=== PATIENT | female | born 1985 | race Caucasian/White ===

== ENCOUNTER → 2017-12-08 | Outpatient (CLI) | payer OTHER ==
[2017-12-08 10:19] LABS: Basophils % (A) 1 %; Eosinophils # (A) 0.1 k/uL (0-0.7); Eosinophils % (A) 2 %; HCT 41.4 % (34.0-46.0); HGB 13.5 gm/dL (11.4-16.0); Lymphocytes # (A) 1.7 k/uL (1.0-4.8); Lymphocytes % (A) 41 %; MCH 27.4 pg (25.0-35.0); MCHC 32.6 g/dL (31.0-37.0); MCV 84.1 fL (80.0-100.0); Mean Platelet Volume 6.9; Monocytes # (A) 0.2 k/uL (0-1.0); Monocytes % (A) 5 %; Neutrophils # (A) 2.1 k/uL (1.3-7.7); Neutrophils % (A) 49 %; Platelet Count 238 k/uL (150-450); RBC 4.92 m/uL (3.80-5.40); RDW 15.4 % (11.5-15.5); WBC 4.3 k/uL (3.8-10.6)
== END | disposition home or self-care (01) ==
LOC: LABPAT 09:50
PROVIDERS: ATTEND Obstetrics & Gynecology
DX: Z01.812 Encounter for preprocedural laboratory examination (principal)
CPT/HCPCS: 36415; 85025

== ENCOUNTER 2017-12-15 06:08 | Day surgery (SDC) | payer OTHER ==
[~2017-12-15 06:08] MED LIST: DEXAMETHASONE SOD PHOSPHATE 10 MG/ML 1 ML VIAL IV ONE; LACTATED RINGERS 1,000 ML IV SCH; MIDAZOLAM 2 MG/2 ML VIAL IV PRN; ONDANSETRON 4 MG/2 ML VIAL IVP ONE; Pre Op ABX Message 1 EACH MISC MISCELLANE ONE; SCOPOLAMINE 1.5MG/72HR PATCH TRANSDERM ONE; fentaNYL (PF) 50 MCG/ML 2 ML AMP IV PRN
[2017-12-15] MEDS ORDERED: LACTATED RINGERS 1,000 ML IV ONE (06:37)
[2017-12-15] MEDS ORDERED: LIDOCAINE 1% 20 ML VIAL (10MG/ML) FOR IV START INTRADERMA ONE (06:38)
--- NOTE | 2017-12-15 06:40 | P.HPOB ---
History of Present Illness H&P Date: 12/15/17 Chief Complaint: Family Planning 32 year old presents for laparoscopic tubal ligation. Review of Systems All systems: negative Constitutional: Denies chills, Denies fever Eyes: denies blurred vision, denies pain Ears, nose, mouth and throat: Denies headache, Denies sore throat Cardiovascular: Denies chest pain, Denies shortness of breath Respiratory: Denies cough Gastrointestinal: Denies abdominal pain, Denies diarrhea, Denies nausea, Denies vomiting Genitourinary: Denies dysuria, Denies hematuria Musculoskeletal: Denies myalgias Integumentary: Denies pruritus, Denies rash Neurological: Denies numbness, Denies weakness Psychiatric: Denies anxiety, Denies depression Endocrine: Denies fatigue, Denies weight change Past Medical History Past Medical History: No Reported History History of Any Multi-Drug Resistant Organisms: None Reported Additional Past Surgical History / Comment(s): D&C 2010, wisdom teeth removed 2001, hemrroid removal 2004 Past Anesthesia/Blood Transfusion Reactions: No Reported Reaction, Motion Sickness Past Psychological History: No Psychological Hx Reported, Panic Disorder Additional Psychological History / Comment(s): VERY FRIGHTENED OF NEEDLES Smoking Status: Former smoker Past Alcohol Use History: None Reported, Occasional Additional Past Alcohol Use History / Comment(s): QUIT SMOKING 2010; .5PPD. Past Drug Use History: None Reported - Past Family History Sister(s) Family Medical History: No Reported History Additional Family Medical History / Comment(s): heart murmur Medications and Allergies Home Medications Medication Instructions Recorded Confirmed Type Ibuprofen [Motrin] 1 tab PO Q6H PRN 12/14/17 12/14/17 History Multivitamins, Thera [Multivitamin 1 tab PO DAILY 12/14/17 12/14/17 History (formulary)] [place]-3 Fatty Acids/Fish Oil [Fish 1 cap PO DAILY 12/14/17 12/14/17 History Oil 1,000 mg Softgel] Allergies Allergy/AdvReac Type Severity Reaction Status Date / Time codeine Allergy Rash/Hives Verified 12/14/17 09:23 tramadol Allergy Unknown Verified 12/14/17 09:23 Exam Osteopathic Statement: *. No significant issues noted on an osteopathic structural exam other than those noted in the History and Physical/Consult. Vital Signs Temp Pulse Resp BP Pulse Ox 07/13/18 06:36 98.0 F 78 18 139/102 98 Intake and Output 12/14/17 12/14/17 12/15/17 14:59 22:59 06:59 Other: Weight 63.503 kg Heart: RRR Lungs: CTAB Abdomen: soft, nontender Extremeties: neg ivett's Assessment and Plan (1) Family planning Current Visit: Yes Status: Acute Code(s): Z30.09 - ENCOUNTER FOR OTH GENERAL CNSL AND ADVICE ON CONTRACEPTION SNOMED Code(s): 388034618 Plan: 1. laparoscopic tubal ligation
[2017-12-15] MEDS ORDERED: KETOROLAC 30 MG/ML 1 ML VIAL ONE (07:30)
[2017-12-15] MEDS ORDERED: LIDOCAINE 1% INJ 10MG/ML (20 ML MDV) ONE (07:30)
[2017-12-15] MEDS ORDERED: fentaNYL (PF) 50 MCG/ML 2 ML AMP ONE (07:30)
[2017-12-15] MEDS ORDERED: SUCCINYLCHOLINE CHLORIDE 100 MG/5 ML SYR IV ONE (07:30)
[2017-12-15] MEDS ORDERED: PROPOFOL 10 MG/ML 20 ML VIAL IV ONE (07:30)
[2017-12-15] MEDS ORDERED: MIDAZOLAM 2 MG/2 ML VIAL ONE (07:30)
[2017-12-15] MEDS ORDERED: BUPIVACAINE (PF) 0.5% 30 ML VIAL SQ ONE ×2 (07:47)
--- NOTE | 2017-12-15 08:07 | P.OP ---
Date of Procedure: 12/15/17 Preoperative Diagnosis: 1. family planning Postoperative Diagnosis: 1. same Procedure(s) Performed: Laparoscopic tubal ligation Anesthesia: NILDA Surgeon: Melyssa Farnsworth Estimated Blood Loss (ml): 5 IV fluids (ml): 700 Urine output (ml): 75 Pathology: none sent Condition: stable Disposition: PACU Operative Findings: Normal uterus, tubes, ovaries Description of Procedure: Patient was taken to the operating room where general anesthesia was obtained without difficulty. She was prepped and draped in normal sterile fashion in the dorsal lithotomy position, legs placed in the Velasquez stirrups. Bladder drained of all urine. [place] speculum placed in the vagina and the anterior lip the cervix was grasped with single-tooth tenaculum. The uterus is sounded to 9 cm and the kroner manipulator was placed. Attention was then turned to the abdomen and gloves were changed. A 10 mm infraumbilical incision was made the scalpel and 10 mm optical trocar was placed under direct visualization. A 5 mm suprapubic Incision was made and a 5 mm optical trocar was placed under direct visualization. Survey of the pelvis revealed normal uterus tubes and ovaries. The left fallopian tube was grasped with a Kleppinger and fulgurated 2 -3 cm on this side in the ampullar portion. The right fallopian tube was grasped with a Kleppinger and fulgurated 2-3 cm in the ampullar portion. All instruments were then removed from the abdomen and vagina. The 10 mm infraumbilical incision was closed with 0 Vicryl and the fascial layer and then 4-0 Vicryl in a subcuticular fashion. The 5 mm incision was closed with 4-0 Vicryl in a subcuticular fashion. Patient tolerated procedure well, sponge and instrument counts correct 2 and she was taken to recovery room in stable condition.
[2017-12-15 08:32] VITALS: RESP 16; TEMP 96.8
[2017-12-15] MEDS ORDERED: HYDROcodone/APAP 5-325MG 1 EACH TAB PO ONE (09:21)
[2017-12-15 09:30] VITALS: BP 107/78; PULSE 56
== END 2017-12-15 09:59 | disposition home or self-care (01) ==
LOC: OR 06:08
PROVIDERS: ATTEND Obstetrics & Gynecology
DX: Z30.2 Encounter for sterilization (principal); F41.0 Panic disorder [episodic paroxysmal anxiety]; Z87.891 Personal history of nicotine dependence; Z88.5 Allergy status to narcotic agent; K21.9 Gastro-esophageal reflux disease without esophagitis
CPT/HCPCS: 81025; 58670; J2250; J1100; J2405; J2001; J3010; J1885; J0330; J2704

== ENCOUNTER → 2019-02-16 | Outpatient (CLI) | payer OTHER ==
[2019-02-16 10:37] LABS: Basophils % (A) 1 %; Eosinophils # (A) 0.1 k/uL (0-0.7); Eosinophils % (A) 2 %; HCT 42.4 % (34.0-46.0); HGB 14.1 gm/dL (11.4-16.0); Lymphocytes # (A) 1.7 k/uL (1.0-4.8); Lymphocytes % (A) 30 %; MCH 29.4 pg (25.0-35.0); MCHC 33.4 g/dL (31.0-37.0); MCV 88.2 fL (80.0-100.0); Mean Platelet Volume 7.2; Monocytes # (A) 0.2 k/uL (0-1.0); Monocytes % (A) 3 %; Neutrophils # (A) 3.5 k/uL (1.3-7.7); Neutrophils % (A) 63 %; Platelet Count 242 k/uL (150-450); RBC 4.81 m/uL (3.80-5.40); RDW 15.8 % (11.5-15.5); WBC 5.5 k/uL (3.8-10.6)
== END | disposition home or self-care (01) ==
LOC: LABPAT 09:58
PROVIDERS: ATTEND Obstetrics & Gynecology
DX: Z01.812 Encounter for preprocedural laboratory examination (principal)
CPT/HCPCS: 36415; 85025

== ENCOUNTER 2019-02-19 07:59 | Emergency (ER) | payer OTHER ==
[2019-02-19 08:11] VITALS: TEMP 98.3
[2019-02-19] MEDS ORDERED: MAG HYDROX/AL HYDROX/SIMETH 30 ML, HYOSCYAMINE ELIXIR 10 ML, CIMETIDINE HCL 300 MG, LID... PO STA ×4 (08:22)
--- NOTE | 2019-02-19 08:26 | ED ---
Chest Pain HPI - General Chief Complaint: Chest Pain Stated Complaint: chest pain Time Seen by Provider: 02/19/19 08:11 Source: patient, RN notes reviewed Mode of arrival: wheelchair Limitations: no limitations - History of Present Illness Initial Comments: 33-year-old female presents emergency Department chief complaint of chest discomfort. Patient states it started a couple days ago and has been persistent. She states she has a burning sensation that radiates up to her chest. Patient denies any current shortness of breath. She does admit that she's had increase in heartburn which is untreated she does not take any medications other than she states that she drinks some large. Patient states that she's also had some upper quadrant abdominal pain. Patient states that she cannot take any Motrin currently as she is scheduled to have an ablation. Patient had a prior tubal ligation denies any chance . Denies any current nausea vomiting diarrhea constipation. Patient reports no recent URI symptoms. Patient has no prior cardiac disease. Denies any dizziness. - Related Data Previous Rx's Medication Instructions Recorded Omeprazole 40 mg PO DAILY #14 capsule. 02/19/19 Allergies Allergy/AdvReac Type Severity Reaction Status Date / Time codeine Allergy Rash/Hives Verified 02/19/19 08:30 tramadol Allergy Unknown Verified 02/19/19 08:30 Review of Systems ROS Statement: Those systems with pertinent positive or pertinent negative responses have been documented in the HPI. ROS Other: All systems not noted in ROS Statement are negative. EKG Findings - EKG Comments: EKG Findings:: EKG performed at 8:25 normal sinus rhythm rate of 85 DC 128 QRS 84 QT/QTC 364/433 Past Medical History Past Medical History: No Reported History Additional Past Medical History / Comment(s): Patient has a history of heart palpitations and was seen by cardiology with negative evaluation. Past obstetrical history is significant for 2 term vaginal deliveries. History of Any Multi-Drug Resistant Organisms: None Reported Past Surgical History: Tubal Ligation Additional Past Surgical History / Comment(s): D&C 2010, wisdom teeth removed 2001, hemroid removal 2004 Past Anesthesia/Blood Transfusion Reactions: No Reported Reaction Past Psychological History: No Psychological Hx Reported, Panic Disorder Smoking Status: Former smoker Past Alcohol Use History: None Reported, Occasional Past Drug Use History: None Reported - Past Family History Sister(s) Additional Family Medical History / Comment(s): heart murmur General Exam Limitations: no limitations General appearance: alert, in no apparent distress Head exam: Present: atraumatic, normocephalic, normal inspection Eye exam: Present: normal appearance, PERRL, EOMI. Absent: scleral icterus, conjunctival injection, periorbital swelling ENT exam: Present: normal exam, normal oropharynx, mucous membranes moist Neck exam: Present: normal inspection, full ROM. Absent: tenderness, meningismus, lymphadenopathy Respiratory exam: Present: normal lung sounds bilaterally. Absent: respiratory distress, wheezes, rales, rhonchi, stridor Cardiovascular Exam: Present: regular rate, normal rhythm, normal heart sounds. Absent: systolic murmur, diastolic murmur, rubs, gallop, clicks GI/Abdominal exam: Present: soft, tenderness (Mild epigastric and right upper quadrant tenderness), normal bowel sounds. Absent: distended, guarding, rebound, rigid Back exam: Absent: CVA tenderness (R), CVA tenderness (L) Neurological exam: Present: alert Skin exam: Present: warm, dry, intact, normal color. Absent: rash Course Vital Signs 02/19/19 02/19/19 08:09 08:25 Temperature 98.3 F Pulse Rate 102 H Pulse Rate [ 81 [employer] ] Respiratory 18 Rate Blood Pressure 159/106 O2 Sat by Pulse 100 Oximetry Chest Pain MDM - MDM 33-year-old female presented for burning her chest. Patient did have labs chest x-ray, ultrasound gallbladder as she had right upper quadrant abdominal pain pain. Ultrasound was unremarkable. Patient had negative troponin negative labwork this time she did have relief with GI cocktail. Patient will be provided prescription for omeprazole Patient will be discharged with close follow-up return parameters were discussed. Disposition Clinical Impression: GERD (gastroesophageal reflux disease), Atypical chest pain Disposition: HOME SELF-CARE Condition: Stable Instructions (If sedation given, give patient instructions): Gastroesophageal Reflux Disease (ED), Chest Pain (ED) Additional Instructions: Please return to the Emergency Department if symptoms worsen or any other concerns. Prescriptions: Omeprazole 40 mg PO DAILY #14 capsule.dr Is patient prescribed a controlled substance at d/c from ED?: No Referrals: None,Stated [Primary Care Provider] - 1-2 days Adriana Dean MD [STAFF PHYSICIAN] - 1-2 days Time of Disposition: 10:05
--- NOTE | 2019-02-19 08:54 | XR ---
EXAMINATION TYPE: XR chest 2V DATE OF EXAM: 02/19/2019 COMPARISON: NONE HISTORY: Chest pain TECHNIQUE: Frontal and lateral views of the chest are obtained. FINDINGS: There is no focal air space opacity, pleural effusion, or pneumothorax seen. The cardiac silhouette size is within normal limits. The osseous structures are intact. There are overlying car diac leads. IMPRESSION: No acute cardiopulmonary process.
[2019-02-19 09:04] LABS: ALT 22 U/L (9-52); AST 23 U/L (14-36); African American GFR (CKD) >90 (>60 ml/min/1.73 sqM); Albumin 4.5 g/dL (3.5-5.0); Alkaline Phosphatase 57 U/L (38-126); Anion Gap 13 mmol/L; Blood Urea Nitrogen 10 mg/dL (7-17); Calcium 9.5 mg/dL (8.4-10.2); Carbon Dioxide 25 mmol/L (22-30); Chloride 102 mmol/L (98-107); Glucose 92 mg/dL (74-99); Potassium 4.2 mmol/L (3.5-5.1); Sodium 140 mmol/L (137-145); Total Bilirubin 0.5 mg/dL (0.2-1.3); Total Protein 7.5 g/dL (6.3-8.2)
--- NOTE | 2019-02-19 09:45 | US ---
EXAMINATION TYPE: US gallbladder DATE OF EXAM: 02/19/2019 COMPARISON: NONE CLINICAL HISTORY: pain, GERD. chest pain x 2 days with reflux EXAM MEASUREMENTS: Liver Length: 12.6 cm Gallbladder Wall: 0.3 cm CBD: 0.5 cm Right Kidney: 9.3 x 4.6 x 4.7 cm Pancreas: wnl in its visualized portions Liver: wnl Gallbladder: wnl Evidence for sonographic Campos's sign: no CBD: wnl Right Kidney: wnl There is no ascites. IMPRESSION: Unremarkable limited exam.
[2019-02-19 09:58] LABS: Anisocytosis Slight; Basophils % (A) 1 %; Eosinophils # (A) 0.1 k/uL (0-0.7); Eosinophils % (A) 2 %; HCT 42.3 % (34.0-46.0); HGB 14.1 gm/dL (11.4-16.0); Lymphocytes # (A) 1.3 k/uL (1.0-4.8); Lymphocytes % (A) 28 %; MCH 29.1 pg (25.0-35.0); MCHC 33.4 g/dL (31.0-37.0); MCV 87.3 fL (80.0-100.0); Mean Platelet Volume 7.2; Monocytes # (A) 0.2 k/uL (0-1.0); Monocytes % (A) 5 %; Neutrophils % (A) 63 %; Platelet Count 243 k/uL (150-450); RBC 4.84 m/uL (3.80-5.40); RDW 17.2 % (11.5-15.5); WBC 4.7 k/uL (3.8-10.6)
[2019-02-19 10:13] VITALS: BP 118/86; PULSE 70; RESP 16
== END 2019-02-19 10:11 | disposition home or self-care (01) ==
LOC: EC 07:59
DX: K21.9 Gastro-esophageal reflux disease without esophagitis (principal); Z98.51 Tubal ligation status; Z87.891 Personal history of nicotine dependence; Z88.5 Allergy status to narcotic agent
CPT/HCPCS: 36415; 71046; 76705; 80053; 83690; 84484; 85025; 93005; 99285

== ENCOUNTER → 2019-02-22 | Day surgery (SDC) | payer OTHER ==
[2019-02-20 11:11] VITALS: BMI 21.7
--- NOTE | 2019-02-21 15:46 | P.HPOB ---
History of Present Illness H&P Date: 02/21/19 Chief Complaint: MEnorrhagia 33 year old presents for D&C hysteroscopy and endometrial ablation with NovaSure. Review of Systems All systems: negative Constitutional: Denies chills, Denies fever Eyes: denies blurred vision, denies pain Ears, nose, mouth and throat: Denies headache, Denies sore throat Cardiovascular: Denies chest pain, Denies shortness of breath Respiratory: Denies cough Gastrointestinal: Denies abdominal pain, Denies diarrhea, Denies nausea, Denies vomiting Genitourinary: Denies dysuria, Denies hematuria Musculoskeletal: Denies myalgias Integumentary: Denies pruritus, Denies rash Neurological: Denies numbness, Denies weakness Psychiatric: Denies anxiety, Denies depression Endocrine: Denies fatigue, Denies weight change Past Medical History Past Medical History: GERD/Reflux Additional Past Medical History / Comment(s): Patient has a history of heart palpitations and was seen by cardiology with negative evaluation. Vaginal bleeding. History of Any Multi-Drug Resistant Organisms: None Reported Past Surgical History: Tubal Ligation Additional Past Surgical History / Comment(s): D&C 2010, wisdom teeth removed 2001, Hemorrhoidectomy 2004. Past Anesthesia/Blood Transfusion Reactions: No Reported Reaction Smoking Status: Former smoker - Past Family History Sister(s) Additional Family Medical History / Comment(s): heart murmur Medications and Allergies Home Medications Medication Instructions Recorded Confirmed Type Omeprazole 40 mg PO DAILY #14 capsule. 02/19/19 02/20/19 Rx Garlic 1 each PO DAILY 02/20/19 02/20/19 History L.acidoph,Paracasei, B.lactis 1 each PO DAILY 02/20/19 02/20/19 History [Probiotic] Allergies Allergy/AdvReac Type Severity Reaction Status Date / Time codeine Allergy Rash/Hives Verified 02/20/19 10:56 tramadol Allergy Anaphylaxis Verified 02/20/19 10:56 Exam Osteopathic Statement: *. No significant issues noted on an osteopathic structural exam other than those noted in the History and Physical/Consult. HEart: RRR Lungs: CTAB ABdomen: soft, nontender Extremeties: neg ivett's Assessment and Plan (1) Menorrhagia Status: Acute Code(s): N92.0 - EXCESSIVE AND FREQUENT MENSTRUATION WITH REGULAR CYCLE SNOMED Code(s): 966242242 Plan: 1. D&C hysteroscopy and endometrial ablation with NovaSUre
[~2019-02-22] MED LIST changes: +HYDROmorphone 0.5 MG/0.5 ML SYRINGE IVP PRN; +HYDROmorphone 1 MG/ML 1 ML SYRINGE IVP ONE; +KETOROLAC 30 MG/ML 1 ML VIAL ONE; +LACTATED RINGERS 1,000 ML IV ONE; +LIDOCAINE 1% 20 ML VIAL (10MG/ML) FOR IV START INTRADERMA PRN; +LIDOCAINE 1% INJ 10MG/ML (20 ML MDV) ONE; -MIDAZOLAM 2 MG/2 ML VIAL IV PRN; +MIDAZOLAM 2 MG/2 ML VIAL ONE; +PROPOFOL 10 MG/ML 20 ML VIAL IV ONE; -SCOPOLAMINE 1.5MG/72HR PATCH TRANSDERM ONE; -fentaNYL (PF) 50 MCG/ML 2 ML AMP IV PRN; +fentaNYL (PF) 50 MCG/ML 2 ML AMP ONE
--- NOTE | 2019-02-22 08:47 | P.OP ---
Date of Procedure: 02/22/19 Preoperative Diagnosis: 1. Menorrhagia Postoperative Diagnosis: 1. Menorrhagia Procedure(s) Performed: D&C, hysteroscopy, endometrial ablation with NovaSure Anesthesia: MAC Surgeon: Melyssa Farnsworth Estimated Blood Loss (ml): 3 IV fluids (ml): 500 Urine output (ml): 300 Pathology: other (endometrial currettings) Condition: stable Disposition: PACU Operative Findings: Cavity length 5.5 cm, width 4.5 cm, power 136 W, time of ablation 58 seconds. Adequate ablation after NovaSure Description of Procedure: Patient is taken the operating room where general anesthesia was obtained without difficulty. She was prepped and draped in normal sterile fashion dorsal lithotomy position, legs placed in the SmashFly cane stirrups. Bladder was drained of all urine. Weighted speculum placed in the vagina and the anterior lip the cervix was grasped with serial tooth tenaculum. The uterus sounded to 9 cm and the cervix under 3.5 cm making the cavity length 5.5 cm. The cervix was dilated to #8 [place] dilator. Hysteroscopy was then performed. Both ostia were visualized and there was a smooth contour of the uterus. Sharp curet was then gently used to obtain endometrial curettings. The NovaSure was introduced into the uterus with a cavity length of 6.5 cm, width 4.5 cm. after cavity assessment was passed, the time of ablation was 58 seconds at 136 W. Hysteroscopy was again performed and adequate ablation was noted. All instruments removed from the vagina. Patient tolerated the procedure well, sponge and instrument counts were correct 2 and she was taken to recovery in stable condition.
[2019-02-22 08:48] VITALS: TEMP 97.2
[2019-02-22 10:52] VITALS: RESP 18
[2019-02-22 10:54] VITALS: BP 139/90; PULSE 74
== END | disposition home or self-care (01) ==
LOC: OR 06:53
PROVIDERS: ATTEND Obstetrics & Gynecology
DX: N92.0 Excessive and frequent menstruation with regular cycle (principal); Z98.51 Tubal ligation status; Z87.891 Personal history of nicotine dependence; Z79.899 Other long term (current) drug therapy; Z88.6 Allergy status to analgesic agent; Z88.5 Allergy status to narcotic agent; F41.0 Panic disorder [episodic paroxysmal anxiety]; K21.9 Gastro-esophageal reflux disease without esophagitis
CPT/HCPCS: 81025; 88305; 58563; J2250; J1100; J2405; J2001; J3010; J1885; J1170; J2704

== ENCOUNTER 2019-04-21 20:34 | Emergency (ER) | payer OTHER ==
[2019-04-21 20:38] VITALS: BP 155/100; PULSE 98; RESP 16; TEMP 97.4
--- NOTE | 2019-04-21 22:04 | ED ---
General Adult HPI - General Chief complaint: Urogenital Stated complaint: Urogenital Time Seen by Provider: 04/21/19 20:39 Source: patient, RN notes reviewed Mode of arrival: ambulatory Limitations: no limitations - History of Present Illness Initial comments: 33-year-old female presents to the emergency department for dysuria. Patient states she has had burning with urination for 2-3 hours. Admits to some mild suprapubic cramping. Denies any significant abdominal pain. Denies back pain. Denies fevers or chills.Patient has no other complaints at this time including shortness of breath, chest pain, abdominal pain, nausea or vomiting, headache, or visual changes. - Related Data Home Medications Medication Instructions Recorded Confirmed Garlic 1 each PO DAILY 02/20/19 02/22/19 L.acidoph,Paracasei, B.lactis 1 each PO DAILY 02/20/19 02/22/19 [Probiotic] Previous Rx's Medication Instructions Recorded Omeprazole 40 mg PO DAILY #14 capsule. 02/19/19 Cephalexin [Keflex] 500 mg PO Q8H 7 Days #21 cap 04/21/19 Allergies Allergy/AdvReac Type Severity Reaction Status Date / Time codeine Allergy Rash/Hives Verified 04/21/19 20:37 tramadol Allergy Anaphylaxis Verified 04/21/19 20:37 Review of Systems ROS Statement: Those systems with pertinent positive or pertinent negative responses have been documented in the HPI. ROS Other: All systems not noted in ROS Statement are negative. Past Medical History Past Medical History: No Reported History Additional Past Medical History / Comment(s): Patient has a history of heart palpitations and was seen by cardiology with negative evaluation. Past obstetrical history is significant for 2 term vaginal deliveries. History of Any Multi-Drug Resistant Organisms: None Reported Past Surgical History: Tubal Ligation Additional Past Surgical History / Comment(s): D&C 2010, wisdom teeth removed 2001, hemroid removal 2004 Past Anesthesia/Blood Transfusion Reactions: No Reported Reaction Past Psychological History: No Psychological Hx Reported, Panic Disorder Smoking Status: Former smoker - Past Family History Sister(s) Additional Family Medical History / Comment(s): heart murmur General Exam Limitations: no limitations General appearance: alert, in no apparent distress Head exam: Present: atraumatic, normocephalic, normal inspection Eye exam: Present: normal appearance, PERRL, EOMI. Absent: scleral icterus, conjunctival injection, periorbital swelling ENT exam: Present: normal exam, mucous membranes moist Neck exam: Present: normal inspection. Absent: tenderness, meningismus, lymphadenopathy Respiratory exam: Present: normal lung sounds bilaterally. Absent: respiratory distress, wheezes, rales, rhonchi, stridor Cardiovascular Exam: Present: regular rate, normal rhythm, normal heart sounds. Absent: systolic murmur, diastolic murmur, rubs, gallop, clicks GI/Abdominal exam: Present: soft, normal bowel sounds. Absent: distended, tenderness (No significant abdominal tenderness), guarding, rebound, rigid Back exam: Absent: CVA tenderness (R), CVA tenderness (L) Course Vital Signs 04/21/19 20:35 Temperature 97.4 F L Pulse Rate 98 Respiratory 16 Rate Blood Pressure 155/100 O2 Sat by Pulse 100 Oximetry Medical Decision Making - Medical Decision Making Patient presents for dysuria 2-3 hours. Vitals are stable. Patient is afebrile. Exam is unremarkable. She does not have any abdominal tenderness or CVA tenderness. Patient has had these exact symptoms with urinary tract infection several times before. At this time unfortunately urinalysis machine is malfunctioning and lab cannot get the results of the UA. Therefore patient will be treated based on symptoms of urinary tract infection. She'll follow up with primary care in 1-2 days. She'll return if she has any worsening symptoms. I will follow-up on urine results and patient will call tomorrow as well. - Lab Data Lab Results 04/21/19 Range/Units 20:45 Urine HCG, Qual Not Detected (Not Detectd) Disposition Clinical Impression: Dysuria Disposition: HOME SELF-CARE Condition: Good Instructions (If sedation given, give patient instructions): Urinary Tract Infection in Women (ED) Additional Instructions: Please take antibiotics as directed. Follow up on urinalysis results. Return to the emergency department if you have any worsening symptoms such as abdominal pain, back pain, or fevers. Prescriptions: Cephalexin [Keflex] 500 mg PO Q8H 7 Days #21 cap Is patient prescribed a controlled substance at d/c from ED?: No Referrals: Rachell Agudelo MD [REFERRING] - 1-2 days Time of Disposition: 22:18
[2019-04-21] MEDS ORDERED: CEPHALEXIN 500MG STARTER PACK 4 CAP BTL PO STA (22:18)
[2019-04-21 22:23] LABS: Appearance,Urine Clear (Clear); Bilirubin,Urine Negative (Negative); Blood,Urine Moderate (Negative); Color,Urine Colorless; Glucose,Urine (UA) Negative (Negative); Ketones,Urine Negative (Negative); Leukocyte Esterase,Urine Moderate (Negative); Nitrite,Urine Negative (Negative); PH, Urine 7.5 (5.0-8.0); Protein,Urine Negative (Negative); Specific Gravity,Urine 1.004 (1.001-1.035); Urobilinogen,Urine <2.0 mg/dL (<2.0)
[2019-04-21 22:41] LABS: Bacteria,Urine Rare /hpf; RBC,Urine 0 /hpf (0-5); Squamous Epithelial Cell,Urine 2 /hpf (0-4)
[2019-04-23 13:57] LABS: C. trachomatis,PCR Negative (Neg,Equiv); Chlamydia trachomatis Source Urine
[2019-04-23 14:07] LABS: N. gonorrhoeae,PCR Negative (Neg,Equiv); Neisseria Source Urine
== END 2019-04-21 22:28 | disposition home or self-care (01) ==
LOC: EC 20:34
DX: R30.0 Dysuria (principal); Z53.8 Procedure and treatment not carried out for other reasons; Z87.891 Personal history of nicotine dependence; Z88.5 Allergy status to narcotic agent; Z88.6 Allergy status to analgesic agent
CPT/HCPCS: 81001; 81025; 87491; 87591; 99283

== ENCOUNTER → 2020-07-03 | Outpatient (CLI) | payer OTHER ==
--- NOTE | 2020-07-03 16:01 | US ---
EXAMINATION TYPE: US pelvic complete DATE OF EXAM: 07/03/2020 COMPARISON: NONE CLINICAL HISTORY: N93.0 Post Coital Pain R10.2 Pelvic Pain. Post coital bleeding since ablation. TECHNIQUE: Transabdominal Date of LMP: EXAM MEASUREMENTS: Uterus: 9.2 x 3.4 x 5.5 cm Endometrial Stripe: 0.6 cm Right Ovary: 2.7 x 1.5 x 1.5 cm Left Ovary: 2.7 x 1.8 x 2.0 cm 1. Uterus: Anteverted wnl 2. Endometrium: wnl 3. Right Ovary: wnl 4. Left Ovary: wnl 5. Bilateral Adnexa: wnl 6. Posterior cul-de-sac: wnl IMPRESSION: No distinct abnormality seen
== END | disposition home or self-care (01) ==
LOC: RADUSWWP 15:27
PROVIDERS: ATTEND Obstetrics & Gynecology
DX: N93.0 Postcoital and contact bleeding (principal); R10.2 Pelvic and perineal pain
CPT/HCPCS: 76856

== ENCOUNTER → 2023-12-27 | Outpatient (CLI) | payer BC, OTHER ==
--- NOTE | 2023-12-27 10:11 | MM ---
Reason for Exam: Clinical finding. Risk Values: Gissel 5 year model risk: 0.3%. NCI Lifetime model risk: 6.7%. Tissue Density: The breasts are heterogeneously dense, which may obscure small masses. Findings: Analyzed By CAD. No distinct mass or distortion. No suspicious microcalcifications. Ultrasound left breast recommended at the site of clinical concern. Overall Assessment: Incomplete: need additional imaging evaluation, BI-RAD 0 Management: Diagnostic Breast Ultrasound of the left breast. . Results were given to the patient verbally at the time of exam. Patient should continue monthly self-breast exams. A clinical breast exam by your physician is recommended on an annual basis. This exam should not preclude additional follow-up of suspicious palpable abnormalities. Note on Gissel scores and lifetime risk: 1. A Gissel score greater than 3% is considered moderate risk. If this is the case, consider specialist referral to assess eligibility for a risk reducing agent. 2. If overall lifetime risk for the development of breast cancer is 20% or higher, the patient may qualify for future screening with alternating mammogram and breast MRI. Electronically signed and approved by: Laron Mitchell M.D. Radiologis
--- NOTE | 2023-12-27 11:09 | USB ---
Reason for Exam: Clinical finding. Patient History: Menarche at age 11. First Full-Term at age 18. Risk Values: Gissel 5 year model risk: 0.4%. NCI Lifetime model risk: 7.4%. Technique: Method: Targeted. Findings: The upper section of the breast of the left breast, the axilla of the left breast and the retroareolar of the left breast were scanned. No solid or cystic masses are identified. Managed clinical findings clinically. Overall Assessment: Negative, BI-RAD 1 Management: Screening Mammogram of both breasts in 1 year. A clinical breast exam by your physician is recommended on an annual basis and results should be correlated with mammographic findings. This exam should not preclude additional follow-up of suspicious palpable abnormalities. Results were given to the patient verbally at the time of exam. Electronically signed and approved by: Laron Mitchell M.D. Radiologis
== END | disposition home or self-care (01) ==
LOC: RADMAMWWP 09:31
PROVIDERS: ATTEND Family Medicine
DX: N63.0 Unspecified lump in unspecified breast (principal); R92.333 Mammographic heterogeneous density, bilateral breasts
CPT/HCPCS: 77062; 77066